=== PATIENT | female | born 1975 | race Caucasian/White ===

== ENCOUNTER 2017-11-09 08:30 | Inpatient (IN) | payer OTHER ==
[~2017-11-09 08:30] MED LIST: CEFAZOLIN 2 GM/50 ML (PMX) 50 ML IVPB
[2017-11-09] MEDS ORDERED: MIDAZOLAM 1 MG/ML 2 ML INJ (10:21)
[2017-11-09] MEDS: BUPIVACAINE 0.25% (MPF) 30 ML INJ (11:40)
[2017-11-09] MEDS ORDERED: LIDOCAINE 2% (SDV) 5 ML INJ (11:43)
[2017-11-09] MEDS ORDERED: GLYCOPYRROLATE 0.4 MG INJ (11:43)
[2017-11-09] MEDS ORDERED: ROCURONIUM 50 MG INJ (11:43)
[2017-11-09] MEDS ORDERED: PROPOFOL 20 ML (11:43)
[2017-11-09] MEDS ORDERED: NEOSTIGMINE 3 MG/3 ML SYRINGE (11:43)
[2017-11-09] MEDS ORDERED: ONDANSETRON 4 MG INJ ×2 (11:43→12:09)
[2017-11-09] MEDS ORDERED: CEFAZOLIN 1 GM INJ (11:46)
[2017-11-09] MEDS ORDERED: METOCLOPRAMIDE 10 MG INJ IV ×2 (12:00→12:30)
[2017-11-09] MEDS ORDERED: DIPHENHYDRAMINE 50 MG INJ IV (12:00)
[2017-11-09] MEDS ORDERED: FENTAnyl 50 MCG/ML VIAL IV ×4 (12:00→12:30)
[2017-11-09] MEDS ORDERED: HYDROmorphONE (0.2 MG/ML) 10ML SYG IV ×5 (12:00→12:30)
[2017-11-09] MEDS ORDERED: morphine 2 MG INJ IV (12:00)
[2017-11-09] MEDS ORDERED: ONDANSETRON 4 MG INJ IV (12:00)
[2017-11-09] MEDS ORDERED: MEPERIDINE 25 MG INJ IV (12:00)
[2017-11-09] MEDS ORDERED: MEPERIDINE 25 MG INJ (12:09)
[2017-11-09] MEDS: HYDROmorphONE (0.2 MG/ML) 10ML SYG IV ×2 (12:23→12:33)
[2017-11-09] MEDS: ONDANSETRON 4 MG INJ IV (12:23)
[2017-11-09 12:24] LABS: ADD MAN DIFF? NO
[2017-11-09] MEDS: MEPERIDINE 25 MG INJ IV (12:24)
[2017-11-09 12:29] LABS: BASOPHIL # 0.1 10^3/ul (0.0-0.1); BASOPHILS % 0.4 % (0.0-2.0); EOSINOPHILS # 0.1 10^3/ul (0.0-0.5); EOSINOPHILS % 0.6 % (0.0-7.0); HEMOGLOBIN 11.9 g/dl (12.0-16.0); LYMPHOCYTES % 16.2 % (15.0-51.0); MEAN CORPUSCULAR HEMOGLOBIN 26.9 pg (29.0-33.0); MEAN CORPUSCULAR HGB CONC 31.3 g/dl (32.0-37.0); MEAN CORPUSCULAR VOLUME 85.8 fl (82.0-101.0); MEAN PLATELET VOLUME 9.9 fl (7.4-10.4); MONOCYTE # 0.5 10^3/ul (0.3-0.9); MONOCYTES % 4.1 % (0.0-11.0); NEUTROPHIL # 9.4 10^3/ul (1.6-7.5); NEUTROPHILS % 77.5 % (39.0-77.0); PLATELET COUNT 336 10^3/UL (140-415); RED BLOOD COUNT 4.43 10^6/ul (4.20-5.40); RED CELL DISTRIBUTION WIDTH 13.8 % (11.5-14.5)
[2017-11-09 12:39] LABS: WHITE BLOOD COUNT 12.2 10^3/ul (4.8-10.8)
[2017-11-09 12:39] LABS: HOLD TRANSMISSIONS 1
[2017-11-09 12:48] LABS: ALANINE AMINOTRANSFERASE 63 IU/L (13-69); ALBUMIN 3.8 g/dl (3.3-4.9); ALBUMIN/GLOBULIN RATIO 1.08; ALKALINE PHOSPHATASE 107 IU/L (42-121); ANION GAP 14 (8-16); ASPARTATE AMINO TRANSFERASE 83 IU/L (15-46); BILIRUBIN,INDIRECT 0.2 mg/dl (0-1.1); BILIRUBIN,TOTAL 0.2 mg/dl (0.2-1.3); CARBON DIOXIDE 26 mmol/L (21-31); CHLORIDE 106 mmol/L (97-110); GLUCOSE 130 mg/dl (70-220); TOTAL PROTEIN 7.3 g/dl (6.1-8.1)
[2017-11-09 13:00] LABS: BLOOD UREA NITROGEN 7 mg/dl (7-20); CALCIUM 8.3 mg/dl (8.4-10.2); CREATININE 0.48 mg/dl (0.44-1.00); POTASSIUM 3.9 mmol/L (3.5-5.1); SODIUM 142 mmol/L (135-144)
[2017-11-09] MEDS: SOD CHLORIDE 0.9% 1,000 ML IV (13:50)
[2017-11-09] MEDS: CEFAZOLIN 2 GM/50 ML (PMX) 50 ML IVPB ×2 (14:56→21:12)
[2017-11-09] MEDS: morphine LIQ (10 MG/5 ML) CUP PO ×2 (16:03→21:11)
[2017-11-09] MEDS: HYDROCODONE/APAP (5/325) TAB PO (18:41)
[2017-11-10] MEDS: HYDROCODONE/APAP (5/325) TAB PO ×2 (00:25→12:12)
[2017-11-10] MEDS: SOD CHLORIDE 0.9% 1,000 ML IV ×5 (00:37→23:00)
[2017-11-10] MEDS: morphine LIQ (10 MG/5 ML) CUP PO ×2 (02:42→09:05)
[2017-11-10] MEDS: CEFAZOLIN 2 GM/50 ML (PMX) 50 ML IVPB (05:03)
[2017-11-10 06:12] LABS: ADD MAN DIFF? NO
[2017-11-10 06:20] LABS: BASOPHILS % 0.2 % (0.0-2.0); EOSINOPHILS % 0.1 % (0.0-7.0); HEMATOCRIT 38.3 % (37.0-47.0); HEMOGLOBIN 12.2 g/dl (12.0-16.0); LYMPHOCYTES # 1.3 10^3/ul (0.8-2.9); LYMPHOCYTES % 8.1 % (15.0-51.0); MEAN CORPUSCULAR HEMOGLOBIN 27.4 pg (29.0-33.0); MEAN CORPUSCULAR HGB CONC 31.9 g/dl (32.0-37.0); MEAN CORPUSCULAR VOLUME 86.1 fl (82.0-101.0); MEAN PLATELET VOLUME 10.2 fl (7.4-10.4); MONOCYTE # 0.8 10^3/ul (0.3-0.9); MONOCYTES % 4.9 % (0.0-11.0); NEUTROPHIL # 14.2 10^3/ul (1.6-7.5); NEUTROPHILS % 86.2 % (39.0-77.0); PLATELET COUNT 316 10^3/UL (140-415); RED BLOOD COUNT 4.45 10^6/ul (4.20-5.40); RED CELL DISTRIBUTION WIDTH 13.9 % (11.5-14.5)
[2017-11-10 06:20] LABS: WHITE BLOOD COUNT 16.4 10^3/ul (4.8-10.8)
[2017-11-10] MEDS: LEVOTHYROXINE 112 MCG TAB PO (06:33)
[2017-11-10 06:42] LABS: ALANINE AMINOTRANSFERASE 54 IU/L (13-69); ALBUMIN 3.5 g/dl (3.3-4.9); ALBUMIN/GLOBULIN RATIO 1.02; ALKALINE PHOSPHATASE 84 IU/L (42-121); ANION GAP 13 (8-16); ASPARTATE AMINO TRANSFERASE 58 IU/L (15-46); BILIRUBIN,INDIRECT 0.4 mg/dl (0-1.1); BILIRUBIN,TOTAL 0.4 mg/dl (0.2-1.3); BLOOD UREA NITROGEN 6 mg/dl (7-20); CALCIUM 8.4 mg/dl (8.4-10.2); CARBON DIOXIDE 28 mmol/L (21-31); CHLORIDE 104 mmol/L (97-110); CREATININE 0.47 mg/dl (0.44-1.00); GLUCOSE 119 mg/dl (70-220); POTASSIUM 4.3 mmol/L (3.5-5.1); SODIUM 141 mmol/L (135-144); TOTAL PROTEIN 6.9 g/dl (6.1-8.1)
[2017-11-11 05:49] LABS: ADD MAN DIFF? NO
[2017-11-11 06:03] LABS: BASOPHILS % 0.3 % (0.0-2.0); EOSINOPHILS # 0.2 10^3/ul (0.0-0.5); EOSINOPHILS % 1.5 % (0.0-7.0); HEMATOCRIT 35.7 % (37.0-47.0); HEMOGLOBIN 11.1 g/dl (12.0-16.0); LYMPHOCYTES # 1.5 10^3/ul (0.8-2.9); LYMPHOCYTES % 14.2 % (15.0-51.0); MEAN CORPUSCULAR HEMOGLOBIN 26.7 pg (29.0-33.0); MEAN CORPUSCULAR HGB CONC 31.1 g/dl (32.0-37.0); MEAN PLATELET VOLUME 10.2 fl (7.4-10.4); MONOCYTE # 0.7 10^3/ul (0.3-0.9); MONOCYTES % 6.3 % (0.0-11.0); NEUTROPHIL # 8.4 10^3/ul (1.6-7.5); NEUTROPHILS % 77.1 % (39.0-77.0); PLATELET COUNT 288 10^3/UL (140-415); RED BLOOD COUNT 4.15 10^6/ul (4.20-5.40); RED CELL DISTRIBUTION WIDTH 14.4 % (11.5-14.5)
[2017-11-11 06:03] LABS: WHITE BLOOD COUNT 10.9 10^3/ul (4.8-10.8)
[2017-11-11 06:40] LABS: ANION GAP 11 (8-16); BLOOD UREA NITROGEN 6 mg/dl (7-20); CALCIUM 8.4 mg/dl (8.4-10.2); CARBON DIOXIDE 30 mmol/L (21-31); CHLORIDE 106 mmol/L (97-110); CREATININE 0.52 mg/dl (0.44-1.00); GLUCOSE 100 mg/dl (70-220); SODIUM 143 mmol/L (135-144)
[2017-11-11] MEDS: LEVOTHYROXINE 112 MCG TAB PO (06:42)
[2017-11-11] MEDS: HYDROCODONE/APAP (5/325) TAB PO ×2 (06:44→14:37)
[2017-11-11] MEDS: SOD CHLORIDE 0.9% 1,000 ML IV ×3 (13:39→23:39)
[2017-11-12] MEDS: SOD CHLORIDE 0.9% 1,000 ML IV ×2 (01:40→02:46)
[2017-11-12] MEDS: LEVOTHYROXINE 112 MCG TAB PO (06:41)
[2017-11-12] MEDS: HYDROCODONE/APAP (5/325) TAB PO (11:35)
[2017-11-13 06:04] LABS: ADD MAN DIFF? NO
[2017-11-13 06:13] LABS: WHITE BLOOD COUNT 11.1 10^3/ul (4.8-10.8)
[2017-11-13 06:13] LABS: BASOPHILS % 0.4 % (0.0-2.0); EOSINOPHILS # 0.2 10^3/ul (0.0-0.5); HEMATOCRIT 37.5 % (37.0-47.0); LYMPHOCYTES # 1.7 10^3/ul (0.8-2.9); LYMPHOCYTES % 15.6 % (15.0-51.0); MEAN CORPUSCULAR HEMOGLOBIN 27.1 pg (29.0-33.0); MEAN CORPUSCULAR VOLUME 84.7 fl (82.0-101.0); MEAN PLATELET VOLUME 10.3 fl (7.4-10.4); MONOCYTE # 0.5 10^3/ul (0.3-0.9); MONOCYTES % 4.9 % (0.0-11.0); NEUTROPHIL # 8.5 10^3/ul (1.6-7.5); NEUTROPHILS % 76.3 % (39.0-77.0); PLATELET COUNT 339 10^3/UL (140-415); RED BLOOD COUNT 4.43 10^6/ul (4.20-5.40)
[2017-11-13 06:39] LABS: ALANINE AMINOTRANSFERASE 56 IU/L (13-69); ALBUMIN 3.5 g/dl (3.3-4.9); ALBUMIN/GLOBULIN RATIO 1.02; ALKALINE PHOSPHATASE 96 IU/L (42-121); ANION GAP 12 (8-16); ASPARTATE AMINO TRANSFERASE 25 IU/L (15-46); BILIRUBIN,INDIRECT 0.3 mg/dl (0-1.1); BILIRUBIN,TOTAL 0.3 mg/dl (0.2-1.3); BLOOD UREA NITROGEN 8 mg/dl (7-20); CARBON DIOXIDE 30 mmol/L (21-31); CHLORIDE 105 mmol/L (97-110); CREATININE 0.47 mg/dl (0.44-1.00); GLUCOSE 105 mg/dl (70-220); POTASSIUM 4.1 mmol/L (3.5-5.1); SODIUM 143 mmol/L (135-144); TOTAL PROTEIN 6.9 g/dl (6.1-8.1)
[2017-11-13] MEDS: LEVOTHYROXINE 112 MCG TAB PO (06:44)
== END 2017-11-13 15:55 | disposition home or self-care (01) | DRG 418 ==
LOC: SDS 08:30 → REC 11:39 → MS2 13:05
PROC: 0FT44ZZ Resection of Gallbladder, Percutaneous Endoscopic Approach (ICD-10-PCS; principal; 2017-11-09 10:00)
DX: K80.10 Calculus of gallbladder with chronic cholecystitis without obstruction (principal); Z68.42 Body mass index [BMI] 45.0-49.9, adult; E66.01 Morbid (severe) obesity due to excess calories; E03.9 Hypothyroidism, unspecified
CPT/HCPCS: 80048; 80053; 85025; 88304